=== PATIENT | female | born 1940 | race Two or more races ===

== ENCOUNTER 2018-12-19 13:16 | Inpatient (IN) | payer MEDICARE, MEDICAID ==
[~2018-12-19] VITALS: Ht 154.9 cm; Wt 53.5 kg
[2018-12-19] MEDS ORDERED: SODIUM CHLORIDE 0.9% 1,000 ML IV ONE (13:34)
[2018-12-19 14:47] LABS: BASOPHILS % 0.3 % (0.0-2.0); EOSINOPHILS % 1.4 % (0.0-5.0); HEMATOCRIT. 37.7 % (36.0-48.0); HEMOGLOBIN. 12.3 g/dL (12.0-16.0); LYMPHOCYTES % 9.3 % (20.0-50.0); MEAN CORPUSCULAR HEMOGLOBIN 29.6 pg (28.0-32.0); MEAN CORPUSCULAR VOLUME 90.3 fL (81.0-99.0); MEAN PLATELET VOLUME 9.3 fl (7.4-10.4); PLATELET 406 x1000/uL (130-400); RED BLOOD CELL COUNT 4.17 mill/uL (4.2-5.4)
[2018-12-19 14:54] LABS: CHLORIDE 104 mEq/L (98-107)
[2018-12-19 15:09] LABS: T4 FREE 1.13 ng/dL (0.76-1.46)
[2018-12-19 15:20] LABS: PROTHROMBIN TIME 10.7 sec (9.6-11.0)
[2018-12-19] MEDS ORDERED: MORPHINE SULFATE 2 MG/ML CPJ (NOT FOR IM USE) IV ONE (15:30)
[2018-12-19] MEDS ORDERED: ONDANSETRON HCL 4MG/2ML INJ IV ONE (15:45)
[2018-12-19] MEDS: MORPHINE SULFATE 4 MG/ML CPJ (NOT FOR IM USE) IV NR ×2 (16:07→18:20)
[2018-12-19] MEDS ORDERED: DEXTROSE 50% WATER 50ML SYRINGE IV ONE (16:45)
[2018-12-19] MEDS ORDERED: INSULIN REGULAR (HUMULIN R) 300UNITS/3ML IV ONE (16:45)
[2018-12-19] MEDS ORDERED: SODIUM BICARBONATE 8.4% 1 MEQ/ML 50ML SYR IV ONE (16:45)
[2018-12-19] MEDS ORDERED: FUROSEMIDE 100MG/10ML VIAL IV ONE (16:45)
[2018-12-19] MEDS ORDERED: SODIUM POLYSTYRENE SULFONATE 15 G/60 ML BOT PO ONE (16:45)
[2018-12-19] MEDS ORDERED: ALBUTEROL (0.083%) 2.5MG/3ML NEB HHN SCH (17:00)
[2018-12-19 22:10] VITALS: BP 92/44
[2018-12-19] MEDS ORDERED: MAGNESIUM/ALUMINUM HYDROXIDE/SIMETHICONE 30ML UDC PO PRN (22:30)
[2018-12-19] MEDS ORDERED: DOCUSATE SODIUM 100MG CAPSULE PO PRN (22:30)
[2018-12-19] MEDS ORDERED: CLONIDINE 0.1MG TABLET PO PRN (22:30)
[2018-12-19] MEDS ORDERED: ONDANSETRON HCL 4MG/2ML INJ IV PRN (22:30)
[2018-12-20] VITALS: BP 94/53
[2018-12-20] MEDS: SODIUM CHLORIDE 0.9% 1,000 ML IV SCH ×2 (00:40→20:48)
[2018-12-20] MEDS: PANTOPRAZOLE SODIUM 40 MG/VIAL IV SCH ×2 (00:41→09:20)
[2018-12-20] MEDS ORDERED: OLME40TA18 MT (01:48)
[2018-12-20] MEDS ORDERED: MELO-106 MT (01:48)
[2018-12-20] MEDS ORDERED: TAP5 MT (01:48)
[2018-12-20] MEDS ORDERED: FENO48TA4 MT (01:48)
[2018-12-20] MEDS ORDERED: DULO60CA63 MT (01:48)
[2018-12-20] MEDS ORDERED: MIRT15TA6 MT (01:48)
[2018-12-20] MEDS ORDERED: FAMO-135 MT (01:48)
[2018-12-20 04:00] VITALS: BP 97/44
[2018-12-20 07:23] LABS: BASOPHILS % 0.6 % (0.0-2.0); EOSINOPHILS % 1.8 % (0.0-5.0); HEMATOCRIT. 29.3 % (36.0-48.0); HEMOGLOBIN. 9.8 g/dL (12.0-16.0); LYMPHOCYTES % 12.6 % (20.0-50.0); MEAN CORPUSCULAR HEMOGLOBIN 30.1 pg (28.0-32.0); MEAN CORPUSCULAR VOLUME 90.2 fL (81.0-99.0); MEAN PLATELET VOLUME 8.9 fl (7.4-10.4); MONOCYTES % 7.3 % (2.0-8.0); NEUTROPHILS % 77.7 % (40.0-76.0); PLATELET 329 x1000/uL (130-400); RED BLOOD CELL COUNT 3.25 mill/uL (4.2-5.4); RED CELL DISTRIBUTION WIDTH 13.8 % (11.6-14.6)
[2018-12-20 08:00] VITALS: BP 101/35
[2018-12-20 08:07] LABS: PHOSPHORUS 3.7 mg/dL (2.5-4.9)
[2018-12-20 08:11] LABS: T4 FREE 1.09 ng/dL (0.76-1.46)
[2018-12-20] MEDS ORDERED: DEXTROSE 50% WATER 50ML SYRINGE IV NR (08:45)
[2018-12-20] MEDS ORDERED: SODIUM BICARBONATE 8.4% 1 MEQ/ML 50ML SYR IV NR (08:45)
[2018-12-20] MEDS ORDERED: SODIUM POLYSTYRENE SULFONATE 15 G/60 ML BOT PO NR ×2 (09:30→19:00)
[2018-12-20] MEDS ORDERED: INSULIN REGULAR (HUMULIN R) UD 100 UNITS/ML SYR IV NR (10:00)
[2018-12-20] MEDS ORDERED: CALCIUM GLUCONATE 1,000 MG in DEXT 5% WATER 90 ML IV NR (10:00)
[2018-12-20 12:00] VITALS: BP 86/53
[2018-12-20 15:46] LABS: CLARITY URINE TURBID (CLEAR); COLOR URINE YELLOW (YELLOW); KETONES URINE NEGATIVE (NEGATIVE); LEUKOCYTE ESTERASE URINE 3+ (NEGATIVE); NITRITE URINE NEGATIVE (NEGATIVE); OCCULT BLOOD URINE 2+ (NEGATIVE); PROTEIN URINE 1+ (NEGATIVE); SPECIFIC GRAVITY URINE 1.019 (1.005-1.030); UROBILINOGEN URINE 0.2 E.U./dL (0.2-1.0)
[2018-12-20 16:00] VITALS: BP 107/62
[2018-12-20 20:00] VITALS: BP_SYST 115; BP_SYST 127; BP_DIAS 57; BP_DIAS 59
[2018-12-21] VITALS: BP 128/57
[2018-12-21 04:00] VITALS: BP 112/62
[2018-12-21 06:49] LABS: BASOPHILS % 0.4 % (0.0-2.0); EOSINOPHILS % 4.1 % (0.0-5.0); HEMATOCRIT. 30.1 % (36.0-48.0); HEMOGLOBIN. 9.8 g/dL (12.0-16.0); LYMPHOCYTES % 14.8 % (20.0-50.0); MEAN CORPUSCULAR HEMOGLOBIN 29.4 pg (28.0-32.0); MEAN CORPUSCULAR VOLUME 90.3 fL (81.0-99.0); MEAN PLATELET VOLUME 8.9 fl (7.4-10.4); MONOCYTES % 8.4 % (2.0-8.0); NEUTROPHILS % 72.3 % (40.0-76.0); PLATELET 281 x1000/uL (130-400); RED BLOOD CELL COUNT 3.33 mill/uL (4.2-5.4)
[2018-12-21 08:00] VITALS: BP 108/61
[2018-12-21 08:54] LABS: ETHANOL BLOOD < 10 mg/dL
[2018-12-21 08:59] LABS: T4 FREE 1.09 ng/dL (0.76-1.46)
[2018-12-21 09:18] LABS: FOLIC ACID (FOLATE) SERUM 10.1 ng/mL (>5.38)
[2018-12-21] MEDS: PANTOPRAZOLE SODIUM 40 MG/VIAL IV SCH (10:44)
[2018-12-21] MEDS: LEVOFLOXACIN 250MG PREMIX 50 ML IV SCH (11:26)
[2018-12-21 12:00] VITALS: BP 114/55
[2018-12-21 16:00] VITALS: BP 95/72
[2018-12-21] MEDS: SODIUM CHLORIDE 0.9% 1,000 ML IV SCH (18:39)
[2018-12-21 20:00] VITALS: BP 125/60
[2018-12-22] VITALS (7 sets, daily range): BP systolic 126–145; BP diastolic 64–77
[2018-12-22] MEDS: ACETAMINOPHEN 325MG TABLET PO PRN ×2 (03:08→11:35)
[2018-12-22 04:42] LABS: *AMPHETAMINES SCREEN URINE NEGATIVE (NEGATIVE); *BARBITURATES SCREEN URINE NEGATIVE (NEGATIVE); *COCAINE SCREEN URINE NEGATIVE (NEGATIVE)
[2018-12-22 04:43] LABS: *BENZODIAZEPINES SCREEN URINE NEGATIVE (NEGATIVE); METHADONE URINE SCREEN NEGATIVE (NEGATIVE); OPIATES URINE SCREEN PRESUMTIVE POSITIVE (NEGATIVE)
[2018-12-22 04:45] LABS: PHENCYCLIDINE URINE SCREEN NEGATIVE (NEGATIVE)
[2018-12-22 04:46] LABS: CANNABINOID URINE SCREEN NEGATIVE (NEGATIVE)
[2018-12-22] MEDS: PANTOPRAZOLE SODIUM 40 MG/VIAL IV SCH (09:21)
[2018-12-22] MEDS: LEVOFLOXACIN 250MG PREMIX 50 ML IV SCH (11:25)
== END 2018-12-22 18:40 | disposition home health service (06) | DRG 682 ==
LOC: ER 13:16 → 6WST 17:06 → EDBEDREQ 17:08 → EDBEDREQTM 17:08 → ENRESERV 20:32
PROVIDERS: ADMIT Family Medicine Adult Medicine; ATTEND Family Medicine Adult Medicine
PROC: 4A00X4Z Measurement of Central Nervous Electrical Activity, External Approach (ICD-10-PCS; principal; 2018-12-22)
DX: N17.9 Acute kidney failure, unspecified (principal); G92 Toxic encephalopathy; E87.2 Acidosis; N39.0 Urinary tract infection, site not specified; G25.9 Extrapyramidal and movement disorder, unspecified; E83.42 Hypomagnesemia; E86.0 Dehydration; E87.5 Hyperkalemia; E86.9 Volume depletion, unspecified; R26.9 Unspecified abnormalities of gait and mobility; R47.1 Dysarthria and anarthria; N18.9 Chronic kidney disease, unspecified; D64.9 Anemia, unspecified; E03.9 Hypothyroidism, unspecified; I12.9 Hypertensive chronic kidney disease with stage 1 through stage 4 chronic kidney disease, or unspecified chronic kidney disease; Z74.01 Bed confinement status; Z82.49 Family history of ischemic heart disease and other diseases of the circulatory system; Z88.6 Allergy status to analgesic agent; Z88.0 Allergy status to penicillin
CPT/HCPCS: 36415; 70551; 71045; 76770; 80048; 80305; 80320; 82140; 82150; 82607; 82746; 82962; 83036; 83605; 83735; 84100; 84132; 84439; 84443; 84481; 84484; 87077; 87186; 92610; 93005; 93970; 96361; 96374; 96375; 97162; 97166; 99291; A6261; C1893; C9113; J0610; J1815; J1956; J2270; J2405; J3490; J7030; J7060; J7611; G0480

== ENCOUNTER 2019-03-21 14:39 | Emergency (ER) | payer MEDICARE, MEDICAID ==
[~2019-03-21] VITALS: Ht 162.6 cm; Wt 55.0 kg
[~2019-03-21 14:39] MED LIST: DULO60CA63 MT; FAMO-135 MT; FENO48TA4 MT; MELO-106 MT; MIRT15TA6 MT; OLME40TA18 MT; TAP5 MT
[2019-03-21 17:33] VITALS: BP 123/64
== END 2019-03-21 17:51 | disposition home or self-care (01) ==
LOC: ER 14:39
DX: F41.0 Panic disorder [episodic paroxysmal anxiety] (principal); F03.90 Unspecified dementia, unspecified severity, without behavioral disturbance, psychotic disturbance, mood disturbance, and anxiety; I10 Essential (primary) hypertension; Z79.899 Other long term (current) drug therapy; Z88.6 Allergy status to analgesic agent; Z88.0 Allergy status to penicillin
CPT/HCPCS: 93005; 99283; 99284

== ENCOUNTER 2021-02-23 18:07 | Inpatient (IN) | payer MEDICARE, MEDICAID ==
[~2021-02-23] VITALS: Ht 152.4 cm; Wt 44.5 kg
[~2021-02-23 18:07] MED LIST changes: -DULO60CA63 MT; +DULO60CA64 MT; -FENO48TA4 MT; +FENO48TA9 MT
[2021-02-23] MEDS ORDERED: SODIUM CHLORIDE 0.9% 1,000 ML IV ONE (18:45)
[2021-02-23 19:32] LABS: BASOPHILS % 0.6 % (0.0-2.0); EOSINOPHILS % 2.2 % (0.0-5.0); HEMATOCRIT. 34.2 % (36.0-48.0); HEMOGLOBIN. 11.8 g/dL (12.0-16.0); LYMPHOCYTES % 21.3 % (20.0-50.0); MEAN CORPUSCULAR HEMOGLOBIN 33.1 pg (28.0-32.0); MEAN CORPUSCULAR VOLUME 95.8 fL (81.0-99.0); MEAN PLATELET VOLUME 8.4 fl (7.4-10.4); MONOCYTES % 7.5 % (2.0-8.0); NEUTROPHILS % 68.4 % (40.0-76.0); PLATELET 230 x1000/uL (130-400); RED BLOOD CELL COUNT 3.57 mill/uL (4.2-5.4); RED CELL DISTRIBUTION WIDTH 12.5 % (11.6-14.6)
[2021-02-23 19:39] LABS: CHLORIDE 112 mEq/L (98-107)
[2021-02-23 19:58] LABS: INR 1.1; PROTHROMBIN TIME 11.4 sec (9.6-11.0)
[2021-02-23 21:33] LABS: CLARITY URINE TURBID (CLEAR); COLOR URINE ORANGE (YELLOW); KETONES URINE NEGATIVE (NEGATIVE); LEUKOCYTE ESTERASE URINE 3+ (NEGATIVE); NITRITE URINE POSITIVE (NEGATIVE); OCCULT BLOOD URINE 3+ (NEGATIVE); PROTEIN URINE 3+ (NEGATIVE); SPECIFIC GRAVITY URINE 1.028 (1.005-1.030)
[2021-02-23] MEDS ORDERED: LEVOFLOXACIN 750MG PREMIX 150 ML IV ONE (22:00)
[2021-02-24 00:45] VITALS: BP 128/66
[2021-02-24] MEDS ORDERED: CEFTRIAXONE 1 G PREMIX 50 ML IV SCH (02:00)
[2021-02-24] MEDS ORDERED: ACETAMINOPHEN 325MG TABLET PO PRN (02:00)
[2021-02-24] MEDS: ACETAMINOPHEN 650MG/20.3ML UDC PO PRN ×3 (03:30→20:57)
[2021-02-24 04:00] VITALS: BP 125/71
[2021-02-24 07:01] LABS: BASOPHILS % 0.4 % (0.0-2.0); EOSINOPHILS % 0.6 % (0.0-5.0); HEMOGLOBIN. 11.4 g/dL (12.0-16.0); LYMPHOCYTES % 12.6 % (20.0-50.0); MEAN CORPUSCULAR HEMOGLOBIN 32.1 pg (28.0-32.0); MEAN PLATELET VOLUME 9.1 fl (7.4-10.4); MONOCYTES % 6.7 % (2.0-8.0); NEUTROPHILS % 79.7 % (40.0-76.0); PLATELET 227 x1000/uL (130-400); RED BLOOD CELL COUNT 3.54 mill/uL (4.2-5.4); RED CELL DISTRIBUTION WIDTH 12.4 % (11.6-14.6)
[2021-02-24 07:05] LABS: CHLORIDE 112 mEq/L (98-107)
[2021-02-24 08:15] VITALS: BP 138/81
[2021-02-24] MEDS: MELOXICAM 15 MG TABLET PO SCH (08:41)
[2021-02-24] MEDS: DULOXETINE HCL 60MG DR CAPSULE PO SCH (08:42)
[2021-02-24] MEDS: AMLODIPINE 10MG TABLET PO SCH (08:42)
[2021-02-24] MEDS: METHIMAZOLE 5MG TABLET PO SCH (08:42)
[2021-02-24] MEDS: FAMOTIDINE 20MG TABLET PO SCH (08:42)
[2021-02-24] MEDS: ENOXAPARIN 40MG/0.4ML SYR SUBCUT SCH (08:43)
[2021-02-24 12:24] VITALS: BP 129/52
[2021-02-24] MEDS ORDERED: LEVOFLOXACIN 500MG PREMIX 100 ML IV SCH ×2 (12:30→14:00)
[2021-02-24] MEDS ORDERED: POTASSIUM CHLORIDE 20MEQ TABLET SR PO SCH (13:00)
[2021-02-24 16:22] VITALS: BP 128/73
[2021-02-24 20:00] VITALS: BP 119/69
[2021-02-24] MEDS: MIRTAZAPINE 15MG TABLET PO SCH (20:57)
[2021-02-25] VITALS: BP 133/70
[2021-02-25 04:14] VITALS: BP 149/73
[2021-02-25] MEDS: ACETAMINOPHEN 650MG/20.3ML UDC PO PRN (05:56)
[2021-02-25 08:00] VITALS: BP 143/66
[2021-02-25] MEDS: METHIMAZOLE 5MG TABLET PO SCH (09:48)
[2021-02-25] MEDS: DULOXETINE HCL 60MG DR CAPSULE PO SCH (09:48)
[2021-02-25] MEDS: FAMOTIDINE 20MG TABLET PO SCH (09:49)
[2021-02-25] MEDS: MELOXICAM 15 MG TABLET PO SCH (09:49)
[2021-02-25] MEDS: AMLODIPINE 10MG TABLET PO SCH (09:49)
[2021-02-25] MEDS: ENOXAPARIN 40MG/0.4ML SYR SUBCUT SCH (09:50)
[2021-02-25] MEDS: LEVOFLOXACIN 250MG PREMIX 50 ML IV SCH (11:41)
[2021-02-25 12:00] VITALS: BP 136/74
[2021-02-25 16:00] VITALS: BP 128/79
[2021-02-25 20:00] VITALS: BP 101/52
[2021-02-25] MEDS: MIRTAZAPINE 15MG TABLET PO SCH (20:59)
[2021-02-26] VITALS: BP 132/68
[2021-02-26 04:00] VITALS: BP 120/65
[2021-02-26 08:00] VITALS: BP 126/62
[2021-02-26] MEDS ORDERED: LEVO500T89 MT ×2 (08:14)
[2021-02-26] MEDS: ENOXAPARIN 40MG/0.4ML SYR SUBCUT SCH (10:53)
[2021-02-26] MEDS: METHIMAZOLE 5MG TABLET PO SCH (10:53)
[2021-02-26] MEDS: LEVOFLOXACIN 250MG PREMIX 50 ML IV SCH (10:54)
[2021-02-26] MEDS: FAMOTIDINE 20MG TABLET PO SCH (10:54)
[2021-02-26] MEDS: AMLODIPINE 10MG TABLET PO SCH (10:54)
[2021-02-26] MEDS: MELOXICAM 15 MG TABLET PO SCH (10:57)
[2021-02-26] MEDS: DULOXETINE HCL 60MG DR CAPSULE PO SCH (10:58)
[2021-02-26 11:58] VITALS: BP 107/60
[2021-02-26 13:06] VITALS: BP 107/60
[2021-02-27] MEDS ORDERED: ENOXAPARIN 30MG/0.3ML SYR SUBCUT SCH (09:00)
== END 2021-02-26 15:18 | disposition home or self-care (01) | DRG 690 ==
LOC: ER 18:07 → 6WST 23:24 → ENRESERV 02-24
PROVIDERS: ADMIT Internal Medicine; ATTEND Internal Medicine
DX: N30.00 Acute cystitis without hematuria (principal); E44.1 Mild protein-calorie malnutrition; Z68.1 Body mass index [BMI] 19.9 or less, adult; E87.8 Other disorders of electrolyte and fluid balance, not elsewhere classified; F03.90 Unspecified dementia, unspecified severity, without behavioral disturbance, psychotic disturbance, mood disturbance, and anxiety; I10 Essential (primary) hypertension; K57.90 Diverticulosis of intestine, part unspecified, without perforation or abscess without bleeding; E03.9 Hypothyroidism, unspecified; Z90.49 Acquired absence of other specified parts of digestive tract; Z88.0 Allergy status to penicillin; Z88.8 Allergy status to other drugs, medicaments and biological substances; Z79.899 Other long term (current) drug therapy
CPT/HCPCS: 36415; 71045; 74176; 80048; 80053; 81003; 83605; 84443; 84484; 85025; 87077; 87186; 92610; 93005; 97161; 99285; J1650; J1956; J7030; J7040

== ENCOUNTER 2021-03-16 08:16 | Inpatient (IN) | payer MEDICARE, MEDICAID ==
[~2021-03-16] VITALS: Ht 152.4 cm; Wt 43.6 kg
[~2021-03-16 08:16] MED LIST changes: -FENO48TA9 MT; +LEVO500T89 MT
[2021-03-16] MEDS ORDERED: ACETAMINOPHEN 325MG TABLET PO STA (08:40)
[2021-03-16] MEDS ORDERED: SODIUM CHLORIDE 0.9% 1000ML BAG (SEPSIS BOLUS) IV ONE (08:45)
[2021-03-16 09:38] LABS: HEMATOCRIT. 35.1 % (36.0-48.0); HEMOGLOBIN. 11.9 g/dL (12.0-16.0); MEAN CORPUSCULAR HEMOGLOBIN 32.3 pg (28.0-32.0); MEAN CORPUSCULAR VOLUME 95.3 fL (81.0-99.0); MEAN PLATELET VOLUME 8.8 fl (7.4-10.4); PLATELET 182 x1000/uL (130-400); RED BLOOD CELL COUNT 3.68 mill/uL (4.2-5.4); RED CELL DISTRIBUTION WIDTH 12.6 % (11.6-14.6)
[2021-03-16 09:39] LABS: CHLORIDE 110 mEq/L (98-107)
[2021-03-16 09:43] LABS: PROTHROMBIN TIME 10.8 sec (9.6-11.0)
[2021-03-16] MEDS ORDERED: MEROPENEM 1,000 MG in SODIUM CHLORIDE 0.9% 100 ML IV SCH (10:00)
[2021-03-16] MEDS ORDERED: VANCOMYCIN 1 G PREMIX 200 ML IV SCH (10:00)
[2021-03-16 10:06] LABS: PLATELET ESTIMATE NORMAL
[2021-03-16 10:07] LABS: CLARITY URINE CLOUDY (CLEAR); COLOR URINE YELLOW (YELLOW); KETONES URINE NEGATIVE (NEGATIVE); LEUKOCYTE ESTERASE URINE 2+ (NEGATIVE); NITRITE URINE POSITIVE (NEGATIVE); OCCULT BLOOD URINE 2+ (NEGATIVE); PROTEIN URINE TRACE (NEGATIVE); SPECIFIC GRAVITY URINE 1.028 (1.005-1.030)
[2021-03-16] MEDS ORDERED: IOHEXOL-300 100 ML BOTTLE ONE (11:17)
[2021-03-16] MEDS ORDERED: CEFTRIAXONE 1 G PREMIX 50 ML IV SCH (13:00)
[2021-03-16] MEDS ORDERED: ONDANSETRON HCL 4MG/2ML INJ IV PRN (13:00)
[2021-03-16] MEDS: SODIUM CHLORIDE 0.45% 1,000 ML IV SCH (13:03)
[2021-03-16 14:35] VITALS: BP 102/53
[2021-03-16 16:45] VITALS: BP 118/53
[2021-03-16] MEDS ORDERED: VENL75CA3 MT (18:06)
[2021-03-16] MEDS ORDERED: OMEP40CA12 MT (18:06)
[2021-03-16] MEDS ORDERED: SENN1TAB35 PO (18:06)
[2021-03-16] MEDS ORDERED: MIRT15TA6 MT (18:06)
[2021-03-16] MEDS ORDERED: TEMA15CA MT (18:06)
[2021-03-16 20:40] VITALS: BP 135/73
[2021-03-16] MEDS: ACETAMINOPHEN 325MG TABLET PO PRN (23:21)
[2021-03-17] VITALS: BP 143/68
[2021-03-17] MEDS: SODIUM CHLORIDE 0.45% 1,000 ML IV SCH ×2 (03:34→17:19)
[2021-03-17] MEDS: ACETAMINOPHEN 325MG TABLET PO PRN ×2 (03:40→21:57)
[2021-03-17 04:00] VITALS: BP 134/50
[2021-03-17] MEDS ORDERED: DIPHENHYDRAMINE 50MG/ML VIAL IV PRN (07:00)
[2021-03-17 08:00] VITALS: BP 110/55
[2021-03-17 12:00] VITALS: BP 128/61
[2021-03-17] MEDS: CEFTRIAXONE 1,000 MG in DEXTROSE 5% WATER 50 ML IV SCH (12:51)
[2021-03-17 16:00] VITALS: BP 124/61
[2021-03-17 20:00] VITALS: BP 154/53
[2021-03-17] MEDS ORDERED: ZOLPIDEM TARTRATE 5MG TABLET PO PRN (23:45)
[2021-03-18] VITALS: BP 152/70
[2021-03-18 04:00] VITALS: BP 157/65
[2021-03-18] MEDS: SODIUM CHLORIDE 0.45% 1,000 ML IV SCH (05:32)
[2021-03-18 08:00] VITALS: BP 173/81
[2021-03-18 09:42] LABS: BASOPHILS % 0.2 % (0.0-2.0); EOSINOPHILS % 2.3 % (0.0-5.0); HEMATOCRIT. 32.9 % (36.0-48.0); HEMOGLOBIN. 11.4 g/dL (12.0-16.0); LYMPHOCYTES % 13.5 % (20.0-50.0); MEAN CORPUSCULAR HEMOGLOBIN 32.6 pg (28.0-32.0); MEAN CORPUSCULAR VOLUME 94.2 fL (81.0-99.0); MEAN PLATELET VOLUME 8.9 fl (7.4-10.4); MONOCYTES % 5.3 % (2.0-8.0); NEUTROPHILS % 78.7 % (40.0-76.0); PLATELET 204 x1000/uL (130-400); RED BLOOD CELL COUNT 3.49 mill/uL (4.2-5.4)
[2021-03-18 09:49] LABS: CHLORIDE 110 mEq/L (98-107)
[2021-03-18 12:00] VITALS: BP 134/93
[2021-03-18] MEDS: CEFTRIAXONE 1,000 MG in DEXTROSE 5% WATER 50 ML IV SCH (13:30)
[2021-03-18] MEDS ORDERED: LEVO500T89 MT (13:39)
[2021-03-18 15:08] VITALS: BP 90/68
[2021-03-18 16:00] VITALS: BP 147/76
[2021-03-18] MEDS ORDERED: MIRTAZAPINE 15MG TABLET PO SCH (21:00)
== END 2021-03-18 18:25 | disposition home or self-care (01) | DRG 872 ==
LOC: ER 08:16 → ENRESERV 13:12 → 8WST 14:41
PROVIDERS: ADMIT Internal Medicine; ATTEND Internal Medicine
DX: A41.9 Sepsis, unspecified organism (principal); E44.1 Mild protein-calorie malnutrition; E87.2 Acidosis; N39.0 Urinary tract infection, site not specified; Z68.1 Body mass index [BMI] 19.9 or less, adult; E87.8 Other disorders of electrolyte and fluid balance, not elsewhere classified; F03.90 Unspecified dementia, unspecified severity, without behavioral disturbance, psychotic disturbance, mood disturbance, and anxiety; I10 Essential (primary) hypertension; K52.9 Noninfective gastroenteritis and colitis, unspecified; Z88.6 Allergy status to analgesic agent; Z88.0 Allergy status to penicillin; Z79.899 Other long term (current) drug therapy; Z79.2 Long term (current) use of antibiotics
CPT/HCPCS: 36415; 71045; 74177; 80048; 80053; 81003; 83605; 84145; 84484; 85025; 87077; 87186; 93005; 97162; 99291; A6261; J0696; J1200; J2185; J3370; J7030; J7050; J7060; Q9967

== ENCOUNTER 2022-04-17 11:45 | Inpatient (IN) | payer MEDICARE, MEDICAID ==
[~2022-04-17] VITALS: Ht 165.1 cm; Wt 48.1 kg
[~2022-04-17 11:45] MED LIST changes: -DULO60CA64 MT; -FAMO-135 MT; -LEVO500T89 MT; +LEVO500T90 MT; -MELO-106 MT; +MIRT-89 MT; -MIRT15TA6 MT; -OLME40TA18 MT; +OMEP40CA20 MT; +SENN1TAB35 PO; -TAP5 MT; +TEMA15CA MT; +VENL75CA3 MT
[2022-04-17 12:50] LABS: BASOPHILS % 0.7 % (0.0-2.0); EOSINOPHILS % 2.3 % (0.0-5.0); HEMATOCRIT. 34.2 % (36.0-48.0); HEMOGLOBIN. 11.5 g/dL (12.0-16.0); LYMPHOCYTES % 30.9 % (20.0-50.0); MEAN CORPUSCULAR HEMOGLOBIN 35.3 pg (28.0-32.0); MEAN CORPUSCULAR VOLUME 104.9 fL (81.0-99.0); MEAN PLATELET VOLUME 8.7 fl (7.4-10.4); MONOCYTES % 5.9 % (2.0-8.0); NEUTROPHILS % 60.2 % (40.0-76.0); PLATELET 203 x1000/uL (130-400); RED BLOOD CELL COUNT 3.26 mill/uL (4.2-5.4); RED CELL DISTRIBUTION WIDTH 13.8 % (11.6-14.6)
[2022-04-17] MEDS ORDERED: CEFTRIAXONE 1 G PREMIX 50 ML IV ONE (13:30)
[2022-04-17 13:32] LABS: CLARITY URINE CLEAR (CLEAR); COLOR URINE YELLOW (YELLOW); KETONES URINE TRACE (NEGATIVE); LEUKOCYTE ESTERASE URINE 2+ (NEGATIVE); NITRITE URINE POSITIVE (NEGATIVE); OCCULT BLOOD URINE NEGATIVE (NEGATIVE); PH URINE 5.5 (4.5-8.0); PROTEIN URINE TRACE (NEGATIVE); SPECIFIC GRAVITY URINE 1.026 (1.005-1.030)
[2022-04-17 13:38] LABS: CHLORIDE 106 mEq/L (98-107)
[2022-04-17] MEDS ORDERED: ALPR0.5T MT (15:51)
[2022-04-17] MEDS ORDERED: [UNRECOGNIZED DRUG - CODE] PO (15:51)
[2022-04-17] MEDS ORDERED: PANT40TA51 MT (15:51)
[2022-04-17 15:54] VITALS: BP 117/63
[2022-04-17 16:24] VITALS: BP 117/63
[2022-04-17] MEDS ORDERED: DIPHENHYDRAMINE 50MG/ML VIAL IV PRN (16:45)
[2022-04-17] MEDS ORDERED: ACETAMINOPHEN 325MG TABLET PO PRN ×2 (16:45)
[2022-04-17] MEDS ORDERED: MAGNESIUM/ALUMINUM HYDROXIDE/SIMETHICONE 30ML UDC PO PRN (16:45)
[2022-04-17] MEDS ORDERED: CEFTRIAXONE 1 G PREMIX 50 ML IV SCH (16:45)
[2022-04-17] MEDS ORDERED: ONDANSETRON HCL 4MG/2ML INJ IV PRN (16:45)
[2022-04-17] MEDS ORDERED: SENNOSIDES/DOCUSATE SOD 8.6/50MG TABLET PO PRN (16:45)
[2022-04-17] MEDS ORDERED: CLONIDINE 0.1MG TABLET PO PRN (16:45)
[2022-04-17] MEDS: SODIUM CHLORIDE 0.9% 1,000 ML IV SCH (17:28)
[2022-04-17] MEDS ORDERED: *PATIENT'S OWN MEDICATION STORAGE XX SCH (17:30)
[2022-04-17] MEDS ORDERED: SENN-23 PO (19:18)
[2022-04-17] MEDS ORDERED: MIRT-89 PO (19:19)
[2022-04-17] MEDS ORDERED: ALPR-340 PO (19:21)
[2022-04-17 20:00] VITALS: BP 116/53
[2022-04-17] MEDS: MIRTAZAPINE 15MG TABLET PO SCH (20:37)
[2022-04-17] MEDS: OMEPRAZOLE 20MG CAPSULE EXTENDED RELEASE PO SCH (20:37)
[2022-04-18] VITALS: BP 111/49
[2022-04-18] MEDS: SODIUM CHLORIDE 0.9% 1,000 ML IV SCH ×3 (02:11→22:45)
[2022-04-18 04:01] VITALS: BP 116/50
[2022-04-18] MEDS: OMEPRAZOLE 20MG CAPSULE EXTENDED RELEASE PO SCH ×2 (06:30→21:22)
[2022-04-18 08:00] VITALS: BP 105/72
[2022-04-18] MEDS: VENLAFAXINE HCL 37.5MG SR CAPSULE 24HR PO SCH (08:38)
[2022-04-18] MEDS: ALPRAZOLAM 0.5 MG TABLET PO PRN (11:34)
[2022-04-18 12:00] VITALS: BP 116/60
[2022-04-18] MEDS ORDERED: CEFTRIAXONE 1,000 MG in DEXTROSE 5% WATER 50 ML IV SCH (14:00)
[2022-04-18 16:00] VITALS: BP 122/56
[2022-04-18 20:00] VITALS: BP 94/63
[2022-04-18] MEDS: MIRTAZAPINE 15MG TABLET PO SCH (21:22)
[2022-04-19] VITALS: BP 137/46
[2022-04-19 04:00] VITALS: BP 96/66
[2022-04-19 08:00] VITALS: BP 143/68
[2022-04-19] MEDS: SODIUM CHLORIDE 0.9% 1,000 ML IV SCH (08:45)
[2022-04-19] MEDS ORDERED: FAMOTIDINE 20MG TABLET PO SCH (09:00)
[2022-04-19] MEDS: VENLAFAXINE HCL 37.5MG SR CAPSULE 24HR PO SCH (09:05)
[2022-04-19] MEDS: ALPRAZOLAM 0.5 MG TABLET PO PRN (09:05)
[2022-04-19 12:00] VITALS: BP 146/65
[2022-04-19 16:00] VITALS: BP 119/71
[2022-04-19 16:22] VITALS: BP 146/65
== END 2022-04-19 18:49 | disposition home or self-care (01) | DRG 872 ==
LOC: ER 11:45 → EDBEDREQTM 13:31 → EDBEDREQ 13:31 → ENRESERV 14:17 → 6WST 15:56
PROVIDERS: ADMIT Internal Medicine; ATTEND Internal Medicine
DX: A41.9 Sepsis, unspecified organism (principal); N17.9 Acute kidney failure, unspecified; N39.0 Urinary tract infection, site not specified; E44.1 Mild protein-calorie malnutrition; E86.0 Dehydration; F03.90 Unspecified dementia, unspecified severity, without behavioral disturbance, psychotic disturbance, mood disturbance, and anxiety; F32.A Depression, unspecified; I10 Essential (primary) hypertension; Z88.0 Allergy status to penicillin; Z88.8 Allergy status to other drugs, medicaments and biological substances; Z79.899 Other long term (current) drug therapy; Z90.49 Acquired absence of other specified parts of digestive tract; Z90.710 Acquired absence of both cervix and uterus; Z96.642 Presence of left artificial hip joint
CPT/HCPCS: 36415; 71045; 80053; 81003; 85025; 87077; 87186; 93005; 99285; J0696; J7030; J7060

== ENCOUNTER 2022-06-12 14:28 | Emergency (ER) | payer MEDICARE, MEDICAID ==
[~2022-06-12] VITALS: Ht 160 cm; Wt 50.0 kg
[~2022-06-12 14:28] MED LIST changes: +ALPR-340 PO; -LEVO500T90 MT; -MIRT-89 MT; +MIRT-89 PO; -OMEP40CA20 MT; +PANT40TA51 MT; +SENN-23 PO; -SENN1TAB35 PO
[2022-06-12 16:05] VITALS: BP 113/59
[2022-06-12] MEDS ORDERED: BENZ100C86 MT (17:11)
== END 2022-06-12 17:51 | disposition home or self-care (01) ==
LOC: ER 14:28
DX: R05.1 Acute cough (principal); I10 Essential (primary) hypertension
CPT/HCPCS: 71045; 99283